=== PATIENT | female | born 1955 | race Hispanic/Latino ===

== ENCOUNTER 2018-08-03 15:31 | Emergency (ER) | payer OTHER ==
[2018-08-03 16:49] LABS: BASOPHILS % (AUTO) 0.6 % (0.0-5.0); EOSINOPHILS % (AUTO) 1.8 % (0.0-8.0); HEMATOCRIT 31.7 % (36-48); LYMPHOCYTES % (AUTO) 22.6 % (21.0-51.0); MEAN CORPUSCULAR HEMOGLOBIN 31.1 pg (27.0-33.0); MEAN CORPUSCULAR HGB CONC 34.1 g/dL (32.0-36.0); MEAN CORPUSCULAR VOLUME 91.2 fL (79-99); MONOCYTES % (AUTO) 6.9 % (3.0-13.0); NEUTROPHILS % (AUTO) 68.1 % (40.0-77.0); PLATELET COUNT (AUTO) 252 K/uL (130-400); RED BLOOD CELL COUNT(AUTO) 3.47 MIL/uL (4.00-5.50); RED CELL DISTRIBUTION WIDTH 13.6 % (11.0-15.5); WHITE BLOOD COUNT (AUTO) 6.6 K/uL (4.8-10.8)
[2018-08-03] MEDS ORDERED: LACTULOSE 20 GM/30 ML UDCUP ONE (16:57)
[2018-08-03 17:05] LABS: CREATININE 0.6 mg/dL (0.5-1.5); POTASSIUM 3.8 mmol/L (3.5-5.1)
[2018-08-03 17:10] LABS: ALBUMIN 3.2 g/dL (3.5-5.0); BILIRUBIN,TOTAL 0.5 mg/dL (0.2-1.0); TOTAL PROTEIN, SERUM 7.1 g/dL (6.0-8.3)
== END 2018-08-03 17:41 | disposition home or self-care (01) ==
LOC: EDH 15:31
DX: K59.00 Constipation, unspecified (principal); R63.0 Anorexia; G20 Parkinson's disease; K21.9 Gastro-esophageal reflux disease without esophagitis; E11.9 Type 2 diabetes mellitus without complications; I10 Essential (primary) hypertension; F43.10 Post-traumatic stress disorder, unspecified; Z88.0 Allergy status to penicillin; Z88.6 Allergy status to analgesic agent; Z88.1 Allergy status to other antibiotic agents; Z85.038 Personal history of other malignant neoplasm of large intestine; Z86.73 Personal history of transient ischemic attack (TIA), and cerebral infarction without residual deficits; Z90.710 Acquired absence of both cervix and uterus; Z90.49 Acquired absence of other specified parts of digestive tract
CPT/HCPCS: 36415; 74018; 80053; 85025

== ENCOUNTER → 2018-10-27 | Outpatient (CLI) | payer OTHER ==
--- NOTE | 2018-10-27 10:30 | NUR ---
MBSS NOT COMPLETED. Pt WHEELED INTO RADIOLOGY WITH PRESENT. Pt TRANSFERRED TO MBSS CHAIR. Pt STATED THAT SHE WAS ALLERGIC TO SHELLFISH. ALL INGREDIENTS ON BARIUM READ TO PT AND . Pt REFUSED MBSS. AND STAFF ATTEMPTED TO ENCOURAGE Pt TO PARTICIPATE IN MBSS. Pt REFUSED AND WAS WHEELED BACK TO [facility]. NO FOOD OR LIQUIDS PROVIDED. NO RECOMMENDATIONS PROVIDED AT THIS TIME. Addendum: 10/28/18 at 0841 by LIMA MCCLENDON [facility] Amended: Links added.
== END | disposition home or self-care (01) ==
LOC: RAH 09:35
PROVIDERS: ATTEND Nurse Practitioner
DX: Z95.3 Presence of xenogenic heart valve (principal)